=== PATIENT | female | born 1945 | race Caucasian/White ===

== ENCOUNTER 2017-01-30 17:50 | Emergency (ER) | payer MEDICARE ==
[2017-01-30 18:50] LABS: BASOPHIL 0.3 % (0-2); EOSINOPHIL 0.3 % (0-7); HCT 45.3 % (37.0-47.0); HGB 15.7 g/dl (12.5-16.0); LYMPHOCYTE 23.2 % (15-48); MCH 32.7 pg (25.0-31.0); MCHC 34.7 g/dL (32.0-36.0); MCV 94.4 fL (78.0-100.0); MONOCYTE 10.8 % (0-12); MPV 9.8 fL (6.0-9.5); NEUTROPHIL 65.4 % (41-80); PLT 184 K/uL (150-400); RDW 13.4 % (11.5-14.0); WBC 7.2 K/uL (4.0-10.5)
[2017-01-30 19:11] LABS: BILIRUBIN - TOTAL 0.7 mg/dL (0.1-1.0); GLOBULIN (CALCULATION) 2.7 g/dL (2.2-4.2); POTASSIUM 3.7 mmol/L (3.5-5.1); TOTAL PROTEIN 6.7 g/dL (6.4-8.3)
[2017-01-30 19:29] LABS: BILIRUBIN NEGATIVE (NEGATIVE); BLOOD TRACE-INTACT Ery/uL (NEGATIVE); CLARITY CLEAR (CLEAR); COLOR YELLOW (YELLOW); GLUCOSE (U) NORMAL (NORMAL); KETONE (U) NEGATIVE (NEGATIVE); LEUKOCYTES NEGATIVE Leu/uL (NEGATIVE); NITRITE NEGATIVE (NEGATIVE); PROTEIN NEGATIVE (NEGATIVE); UROBILINOGEN 0.2 mg/dL (0.2-1.0)
[2017-01-30 19:45] LABS: BACTERIA 1+; MUCOUS TRACE; SQUAMOUS EPITHELIAL CELLS RARE; URINARY RBC RARE; URINARY WBC RARE
== END 2017-01-30 22:00 | disposition home or self-care (01) ==
LOC: FER 17:50
PROVIDERS: Nurse Practitioner
DX: E86.0 Dehydration (principal); R11.2 Nausea with vomiting, unspecified; R19.7 Diarrhea, unspecified; I11.9 Hypertensive heart disease without heart failure; Z88.1 Allergy status to other antibiotic agents; Z88.5 Allergy status to narcotic agent; Z95.5 Presence of coronary angioplasty implant and graft; Z90.49 Acquired absence of other specified parts of digestive tract
CPT/HCPCS: 36415; 80053; 81001; 82150; 83690; 85025; J2270; J2405

== ENCOUNTER 2017-02-13 11:25 | Emergency (ER) | payer MEDICARE ==
[2017-02-13 12:22] LABS: BILIRUBIN NEGATIVE (NEGATIVE); BLOOD NEGATIVE Ery/uL (NEGATIVE); CLARITY CLEAR (CLEAR); COLOR AMBER (YELLOW); GLUCOSE (U) NORMAL (NORMAL); KETONE (U) NEGATIVE (NEGATIVE); LEUKOCYTES NEGATIVE Leu/uL (NEGATIVE); NITRITE NEGATIVE (NEGATIVE); PROTEIN NEGATIVE (NEGATIVE); pH 5.5 (5.0-9.0)
[2017-02-13 12:27] LABS: BASOPHIL 0.6 % (0-2); EOSINOPHIL 1.8 % (0-7); HCT 35.5 % (37.0-47.0); HGB 11.8 g/dl (12.5-16.0); LYMPHOCYTE 19.7 % (15-48); MCH 32.3 pg (25.0-31.0); MCHC 33.2 g/dL (32.0-36.0); MCV 97.3 fL (78.0-100.0); MONOCYTE 11.1 % (0-12); MPV 9.9 fL (6.0-9.5); NEUTROPHIL 66.8 % (41-80); PLT 259 K/uL (150-400); RBC 3.65 M/uL (4.20-5.40); RDW 13.7 % (11.5-14.0); WBC 8.7 K/uL (4.0-10.5)
[2017-02-13 12:48] LABS: ALBUMIN 3.5 g/dL (3.4-4.8); BILIRUBIN - TOTAL 0.8 mg/dL (0.1-1.0); CREATININE 0.9 mg/dL (0.5-1.0); GLOBULIN (CALCULATION) 3.5 g/dL (2.2-4.2); POTASSIUM 3.9 mmol/L (3.5-5.1)
== END 2017-02-13 15:28 | disposition home or self-care (01) ==
LOC: FER 11:25
PROVIDERS: Emergency Medicine
DX: E86.0 Dehydration (principal); D64.9 Anemia, unspecified; R53.1 Weakness; R19.7 Diarrhea, unspecified; I10 Essential (primary) hypertension; J44.9 Chronic obstructive pulmonary disease, unspecified; Z88.1 Allergy status to other antibiotic agents; Z88.5 Allergy status to narcotic agent; Z79.899 Other long term (current) drug therapy
CPT/HCPCS: 36415; 71010; 80053; 81003; 83690; 84443; 84484; 85025; 87804; 87899; 93005